=== PATIENT | male | born 1950 | race Caucasian/White ===

== ENCOUNTER 2017-12-23 11:33 | Emergency (ER) | payer MEDICARE, OTHER ==
[~2017-12-23] VITALS: Ht 172.7 cm; Wt 104.5 kg
[~2017-12-23 11:33] MED LIST: ASPI81TA82 PO; CARV6.252 PO; CYCL5TAB PO; EZET10 PO; FURO20TA PO; GLUCTAB PO; LORTA5 PO; POTA-243 PO; PROBCAP28 PO; ROSU40 PO
[2017-12-23 11:43] VITALS: BP 122/74; PULSE 89; RESP 18; TEMP 97.6; O2SAT 97
[2017-12-23] MEDS ORDERED: SODIUM CHLOR 0.9% 1000 ML INJ 1,000 ML IV SCH (12:27)
[2017-12-23] MEDS ORDERED: ONDANSETRON HCL 4 MG/2 ML VIAL IVP ONE (12:30)
[2017-12-23] MEDS ORDERED: MORPHINE SULFATE 4 MG/ML INJ IV PUSH ONE (12:30)
[2017-12-23] MEDS ORDERED: SODIUM CHLORIDE 0.9% FLUSH 10 ML FLUSH IV FLUSH PRN (12:30)
[2017-12-23 13:00] VITALS: BP 110/66; PULSE 77; RESP 16; O2SAT 95
--- NOTE | 2017-12-23 13:00 | PD ---
HPI Chief Complaint: Abdominal Pain Time Seen by Provider: 12:17 Travel History International Travel<30 days: No Contact w/Intl Traveler<30days: No Traveled to known affect area: No History of Present Illness HPI This 67-year-old man, presents emerged from complaining of right-sided abdominal pain radiating around the right flank. Symptoms started last night. He is also had nausea vomiting, lightheadedness and sweats. No history of previous similar symptoms. States like he feels like he has to have a bowel movement but is unable to. One episode of diarrhea before it started. No urinary changes. No dark colored urine. He otherwise had been feeling well and healthy before this. Symptoms have been persistent, severe, and unaffected by home remedies. History Past Medical History Narrative Medical CAD, history of CABG Diabetes Hypertension Hyperlipidemia Social History Alcohol Use: Yes (occas.) Tobacco Use: No (quit in 05/2014 smoked cigs) Allergies-Medications (Allergen,Severity, Reaction): Coded Allergies: penicillin G (Unverified Allergy, Intermediate, hives, 05/03/17) Reported Meds & Prescriptions Reported Meds & Active Scripts Active Reported Oxycodone (Oxycodone HCl) 10 Mg Tab 10 Mg PO Q4H PRN Centrum (Multiple Vitamins W/ Minerals) 1 Chew 1 Tab CHEW DAILY D3 Maximum Strength (Cholecalciferol) 5,000 Unit Cap 2,000 Units PO DAILY Aspirin 81 Low Dose (Aspirin) 81 Mg Chew 81 Mg CHEW DAILY Pantoprazole (Pantoprazole Sodium) 40 Mg Tab 40 Mg PO DAILY Carvedilol 6.25 Mg Tab 6.25 Mg PO BID Lisinopril 20 Mg Tab 20 Mg PO DAILY Atorvastatin (Atorvastatin Calcium) 80 Mg Tab 80 Mg PO HS Metformin (Metformin HCl) 500 Mg Tab 500 Mg PO BIDPC Review of Systems Except as stated in HPI: all other systems reviewed are Neg Physical Exam Narrative GENERAL: Uncomfortable 67-year-old man, nontoxic. SKIN: Focused skin assessment warm/dry. HEAD: Atraumatic. Normocephalic. EYES: Pupils equal and round. No scleral icterus. No injection or drainage. ENT: No nasal bleeding or discharge. Mucous membranes pink and moist. NECK: Trachea midline. No JVD. CARDIOVASCULAR: Abdomen is obese and soft. Minimal right-sided tenderness. Negative Dubon's. No rebound or guarding. RESPIRATORY: No accessory muscle use. Clear to auscultation. Breath sounds equal bilaterally. GASTROINTESTINAL: Abdomen soft, non-tender, nondistended. Hepatic and splenic margins not palpable. MUSCULOSKELETAL: No obvious deformities. No edema. Left hand is in a surgical bandage with an Jesse wrap. NEUROLOGICAL: Awake and alert. No obvious cranial nerve deficits. Motor grossly within normal limits. Normal speech. Data Data Last Documented VS Vital Signs Date Time Temp Pulse Resp B/P (MAP) Pulse Ox O2 Delivery O2 Flow Rate FiO2 12/23/17 13:00 77 16 110/66 (81) 95 Room Air 12/23/17 11:43 97.6 Orders Orders Complete Blood Count With Diff (12/23/17 12:27) Comprehensive Metabolic Panel (12/23/17 12:27) Lipase (12/23/17 12:27) Urinalysis - C+S If Indicated (12/23/17 12:27) Ct Abd/Pel W/O Iv Contrast (12/23/17 12:27) Iv Access Insert/Monitor (12/23/17 12:27) Ecg Monitoring (12/23/17 12:27) Oximetry (12/23/17 12:27) Morphine Inj (Morphine Inj) (12/23/17 12:30) Ondansetron Inj (Zofran Inj) (12/23/17 12:30) Sodium Chlor 0.9% 1000 Ml Inj (Ns 1000 M (12/23/17 12:27) Sodium Chloride 0.9% Flush (Ns Flush) (12/23/17 12:30) Ketorolac Inj (Toradol Inj) (12/23/17 13:45) Labs Laboratory Tests Test 12/23/17 13:10 12/23/17 13:30 White Blood Count 15.1 TH/MM3 Red Blood Count 4.80 MIL/MM3 Hemoglobin 14.1 GM/DL Hematocrit 41.8 % Mean Corpuscular Volume 87.0 FL Mean Corpuscular Hemoglobin 29.3 PG Mean Corpuscular Hemoglobin Concent 33.7 % Red Cell Distribution Width 13.4 % Platelet Count 189 TH/MM3 Mean Platelet Volume 7.6 FL Neutrophils (%) (Auto) 85.6 % Lymphocytes (%) (Auto) 5.7 % Monocytes (%) (Auto) 8.0 % Eosinophils (%) (Auto) 0.2 % Basophils (%) (Auto) 0.5 % Neutrophils # (Auto) 13.0 TH/MM3 Lymphocytes # (Auto) 0.9 TH/MM3 Monocytes # (Auto) 1.2 TH/MM3 Eosinophils # (Auto) 0.0 TH/MM3 Basophils # (Auto) 0.1 TH/MM3 CBC Comment DIFF FINAL Differential Comment Blood Urea Nitrogen 22 MG/DL Creatinine 1.62 MG/DL Random Glucose 124 MG/DL Total Protein 7.5 GM/DL Albumin 3.7 GM/DL Calcium Level 9.1 MG/DL Alkaline Phosphatase 76 U/L Aspartate Amino Transf (AST/SGOT) 16 U/L Alanine Aminotransferase (ALT/SGPT) 26 U/L Total Bilirubin 0.5 MG/DL Sodium Level 141 MEQ/L Potassium Level 4.2 MEQ/L Chloride Level 106 MEQ/L Carbon Dioxide Level 27.9 MEQ/L Anion Gap 7 MEQ/L Estimat Glomerular Filtration Rate 43 ML/MIN Lipase 117 U/L Urine Color YELLOW Urine Turbidity CLEAR Urine pH 5.5 Urine Specific [place] 1.032 Urine Protein TRACE mg/dL Urine Glucose (UA) NEG mg/dL Urine Ketones NEG mg/dL Urine Occult Blood TRACE Urine Nitrite NEG Urine Bilirubin NEG Urine Urobilinogen LESS THAN 2.0 MG/DL Urine Leukocyte Esterase NEG Urine RBC 1 /hpf Urine WBC LESS THAN 1 /hpf Urine Mucus FEW /lpf Microscopic Urinalysis Comment CULT NOT INDICATED MDM Medical Decision Making Medical Screen Exam Complete: Yes Emergency Medical Condition: Yes Interpretation(s) LABS: CBC remarkable for mild leukocytosis. BMP remarkable for elevated BUN and creatinine. Lipase normal. UA with trace occult blood. CT abdomen pelvis: 3 mm distal right ureteral calcification with mild ureteral dilatation and swelling of the collection system. Some inflammatory change about the right ureter. No evidence of hydronephrosis on the left. 3.3 cm distal aortic aneurysm. Differential Diagnosis Renal stone, diverticulitis, constipation, cholecystitis, other Narrative Course Medical decision making 67-year-old man with flank pain, vomiting, abrupt onset yesterday. Suspicious for renal lithiasis. AAA, gallbladder disease, stomach disease, alcohol has similar appearance. Patient looks well. Recommend supportive treatment, CT, reassess. Diagnosis Primary Impression: Renal stone Additional Instructions: Follow-up with your primary doctor for further evaluation and testing. Take pain medicine as prescribed. The Zofran if needed for nausea or vomiting. You have a small distal aortic aneurysm. This will need follow-up. Return to the emergency department for any new or worsening symptoms. Med/Other Pt SpecificInfo: Prescription(s) given Scripts Ondansetron Odt (Zofran Odt) 4 Mg Tab 4 MG SL Q8HR Y for Nausea/Vomiting, #15 TAB 0 Refills Prov: Mann Montejo MD 12/23/17 Naproxen (Naproxen) 375 Mg Tab 375 MG PO BID, #10 TAB 0 Refills Prov: Mann Montejo MD 12/23/17 Oxycodone (Oxycodone) 10 Mg Tab 10 MG PO Q4H Y for PAIN, #20 TAB 0 Refills Prov: Mann Montejo MD 12/23/17 Disposition: 01 DISCHARGE HOME Condition: Stable Mann Montejo MD Dec 23, 2017 13:00
--- NOTE | 2017-12-23 13:20 | RADRPT ---
EXAM DATE/TIME: 12/23/2017 12:49 [facility] COMPARISON: No previous studies available for comparison. INDICATIONS : Right upper abdominal pain, diarrhea. ORAL CONTRAST: No oral contrast ingested. RADIATION DOSE: 8.45 CTDIvol (mGy) MEDICAL HISTORY : Cardiovascular disease. Diabetes SURGICAL HISTORY : Prostatectomy. CABG ENCOUNTER: Initial ACUITY: 2 days PAIN SCALE: 8/10 LOCATION: Right upper quadrant TECHNIQUE: Renal colic protocol. Volumetric scanning of the abdomen and pelvis was performed. Using automated exposure control and adjustment of the mA and/or kV according to patient size, radiation dose was kep t as low as reasonably achievable to obtain optimal diagnostic quality images. DICOM format image da ta is available electronically for review and comparison. FINDINGS: Right side: There is mild dilation of the collecting system an extrarenal pelvis. No calcified stones in the col lecting system. There is mild dilation of the ureters no distal one third where there is a 3 mm calc ified stone causing obstruction. There is diffuse fatty induration with lacy linear lines seen in th e pararenal space and there is also some lacy induration coursing along the right ureter. Left side: No evidence of hydronephrosis or calcified stones. Left ureter is normal in dimension. Bladder: Nondistended. No calcifications within the lumen. Other: The infrarenal abdominal aorta measures 3.3 cm. No calcified gallstones. No dilated loops of small or large bowel. No evidence of free fluid. CONCLUSION: 1. 3 mm distal right ureteral calcified stone causing mild dilation of the ureter and mild dilation o f the collecting system. There is also inflammatory change about the right ureter and pararenal spac e suggesting possible pyelosinus extravasation. 2. No evidence of stones or hydronephrosis on the left side. 3. 3.3 cm distal abdominal aortic. Inocencio Ramirez MD on December 23, 2017 at 13:09 Board Certified Radiologist. This report was verified electronically.
[2017-12-23 13:22] LABS: BASOPHIL # 0.1 TH/MM3 (0-0.2); BASOPHIL % 0.5 % (0.0-2.0); EOSINOPHIL % 0.2 % (0.0-4.0); HEMATOCRIT 41.8 % (39.0-51.0); HEMOGLOBIN 14.1 GM/DL (13.0-17.0); LYMPH % 5.7 % (9.0-44.0); LYMPHOCYTE # 0.9 TH/MM3 (1.0-4.8); MEAN CORPUSCULAR HEMOGLOBIN 29.3 PG (27.0-34.0); MEAN CORPUSCULAR HGB CONC 33.7 % (32.0-36.0); MEAN PLATELET VOLUME 7.6 FL (7.0-11.0); MONOCYTE # 1.2 TH/MM3 (0-0.9); NEUT % 85.6 % (16.0-70.0); PLATELET COUNT 189 TH/MM3 (150-450); RED CELL DISTRIBUTION WIDTH 13.4 % (11.6-17.2); WHITE BLOOD COUNT 15.1 TH/MM3 (4.0-11.0)
[2017-12-23 13:40] LABS: ALBUMIN 3.7 GM/DL (3.4-5.0); ALT (GPT) 26 U/L (12-78); AST (GOT) 16 U/L (15-37); BICARBONATE 27.9 MEQ/L (21.0-32.0); BLOOD UREA NITROGEN 22 MG/DL (7-18); CALCIUM 9.1 MG/DL (8.5-10.1); CHLORIDE 106 MEQ/L (98-107); CREATININE 1.62 MG/DL (0.60-1.30); GLOMERULAR FILTRATION RATE 43 ML/MIN (>89); GLUCOSE,RANDOM 124 MG/DL (74-106); SODIUM (NA) 141 MEQ/L (136-145)
[2017-12-23 13:43] LABS: ALKALINE PHOSPHATASE 76 U/L (45-117); TOTAL BILIRUBIN ADULT 0.5 MG/DL (0.2-1.0); TOTAL PROTEIN 7.5 GM/DL (6.4-8.2)
[2017-12-23] MEDS ORDERED: KETOROLAC TROMETHAMINE 30 MG/ML (IVP) VIAL IVP ONE (13:45)
[2017-12-23 13:58] LABS: BILIRUBIN, URINE NEG (NEG); BLOOD, URINE TRACE (NEG); GLUCOSE,URINE NEG (NEG); KETONE, URINE NEG (NEG); MUCUS URINE FEW /lpf (OCC); NITRITE,URINE NEG (NEG); PH, URINE 5.5 (5.0-8.5); URINE COLOR YELLOW (YELLW/STRAW); URINE LEUKOCYTE ESTERASE NEG (NEG)
[2017-12-23] MEDS ORDERED: METF500T PO (14:01)
[2017-12-23] MEDS ORDERED: ATOR80TA45 PO (14:01)
[2017-12-23] MEDS ORDERED: D 50CAP2 PO (14:01)
[2017-12-23] MEDS ORDERED: PANT40TA3 PO (14:01)
[2017-12-23] MEDS ORDERED: CARV6.252 PO (14:01)
[2017-12-23] MEDS ORDERED: LISI-515 PO (14:01)
[2017-12-23] MEDS ORDERED: ASPI1CHW4 CHEW (14:01)
[2017-12-23] MEDS ORDERED: OXYC-395 PO ×2 (14:01→14:06)
[2017-12-23] MEDS ORDERED: CENTCHW4 CHEW (14:01)
[2017-12-23] MEDS ORDERED: ZOFR4TAB3 SL (14:06)
[2017-12-23] MEDS ORDERED: NAPR-855 PO (14:06)
== END 2017-12-23 14:43 | disposition home or self-care (01) ==
LOC: NEPD 11:33
DX: N20.0 Calculus of kidney (principal); D72.829 Elevated white blood cell count, unspecified; R11.2 Nausea with vomiting, unspecified; R42 Dizziness and giddiness; R19.7 Diarrhea, unspecified; I25.10 Atherosclerotic heart disease of native coronary artery without angina pectoris; E11.9 Type 2 diabetes mellitus without complications; I10 Essential (primary) hypertension; E78.5 Hyperlipidemia, unspecified
CPT/HCPCS: 74176; 80053; 81001; 83690; 85025; 96374; 96375; 99284; J1885; J2270; J2405; J7030